=== PATIENT | female | born 1985 | race Caucasian/White ===

== ENCOUNTER 2016-08-23 18:40 | Emergency (ER) | payer OTHER, MEDICARE | END 2016-08-23 23:13 | disposition home or self-care (01) | LOC: ER1 18:40 | DX: S40.012A Contusion of left shoulder, initial encounter (principal); S70.02XA Contusion of left hip, initial encounter; W22.8XXA Striking against or struck by other objects, initial encounter; Z91.040 Latex allergy status; Y92.009 Unspecified place in unspecified non-institutional (private) residence as the place of occurrence of the external cause | CPT/HCPCS: 73030; 73502; 81001; 99283 ==

== ENCOUNTER 2016-08-25 16:06 | Emergency (ER) | payer MEDICARE | END 2016-08-25 19:00 | disposition home or self-care (01) | LOC: ER1 16:06 | DX: S39.012A Strain of muscle, fascia and tendon of lower back, initial encounter (principal); J45.909 Unspecified asthma, uncomplicated; V09.9XXA Pedestrian injured in unspecified transport accident, initial encounter; Y93.89 Activity, other specified; Z91.040 Latex allergy status; Z79.899 Other long term (current) drug therapy | CPT/HCPCS: 72070; 72100; 99283 ==